=== PATIENT | female | born 1945 | race Asian ===

== ENCOUNTER 2018-09-27 15:06 | Inpatient (IN) | payer MEDICARE, MEDICAID ==
[~2018-09-27] VITALS: Ht 149.9 cm; Wt 52.2 kg
[2018-09-27] MEDS ORDERED: CEFTRIAXONE 1 G PREMIX 50 ML IV ONE (15:30)
[2018-09-27] MEDS ORDERED: SODIUM CHLORIDE 0.9% 1000ML BAG (SEPSIS BOLUS) IV ONE (15:30)
[2018-09-27 16:29] LABS: BASOPHILS % 0.2 % (0.0-2.0); HEMATOCRIT. 41.4 % (36.0-48.0); HEMOGLOBIN. 14.2 g/dL (12.0-16.0); LYMPHOCYTES % 9.4 % (20.0-50.0); MEAN CORPUSCULAR VOLUME 93.6 fL (81.0-99.0); MEAN PLATELET VOLUME 9.9 fl (7.4-10.4); MONOCYTES % 8.4 % (2.0-8.0); PLATELET 161 x1000/uL (130-400); RED BLOOD CELL COUNT 4.42 mill/uL (4.2-5.4); RED CELL DISTRIBUTION WIDTH 12.6 % (11.6-14.6)
[2018-09-27 16:38] LABS: PROTHROMBIN TIME 10.2 sec (9.6-11.0)
[2018-09-27 16:39] LABS: CHLORIDE 111 mEq/L (98-107)
[2018-09-27] MEDS ORDERED: POTASSIUM CHLORIDE 20MEQ TABLET SR PO ONE (17:00)
[2018-09-27 19:47] LABS: CLARITY URINE CLEAR (CLEAR); COLOR URINE YELLOW (YELLOW); KETONES URINE TRACE (NEGATIVE); LEUKOCYTE ESTERASE URINE 2+ (NEGATIVE); NITRITE URINE NEGATIVE (NEGATIVE); OCCULT BLOOD URINE NEGATIVE (NEGATIVE); PROTEIN URINE TRACE (NEGATIVE); SPECIFIC GRAVITY URINE 1.017 (1.005-1.030)
[2018-09-27 20:05] LABS: *AMPHETAMINES SCREEN URINE NEGATIVE (NEGATIVE); *BARBITURATES SCREEN URINE NEGATIVE (NEGATIVE); *BENZODIAZEPINES SCREEN URINE NEGATIVE (NEGATIVE); *COCAINE SCREEN URINE NEGATIVE (NEGATIVE); CANNABINOID URINE SCREEN NEGATIVE (NEGATIVE); OPIATES URINE SCREEN NEGATIVE (NEGATIVE); PHENCYCLIDINE URINE SCREEN NEGATIVE (NEGATIVE)
[2018-09-27 20:06] LABS: METHADONE URINE SCREEN NEGATIVE (NEGATIVE)
[2018-09-27] MEDS ORDERED: CLONIDINE 0.1MG TABLET PO PRN (22:15)
[2018-09-27] MEDS ORDERED: GUAIFENESIN 200MG/10ML SUGAR FREE UDC PO PRN (22:15)
[2018-09-27] MEDS ORDERED: ONDANSETRON HCL 4MG/2ML INJ IV PRN (22:15)
[2018-09-27] MEDS ORDERED: MAGNESIUM/ALUMINUM HYDROXIDE/SIMETHICONE 30ML UDC PO PRN (22:15)
[2018-09-27] MEDS ORDERED: ACETAMINOPHEN 325MG TABLET PO PRN (22:15)
[2018-09-27 23:51] VITALS: BP 126/72
[2018-09-28] MEDS ORDERED: POTASSIUM CHLORIDE 20MEQ TABLET SR PO NR
[2018-09-28] MEDS: IPRATROPIUM/ALBUTEROL 0.5-3(2.5)MG/3ML NEB HHN SCH ×3 (00:21→21:40)
[2018-09-28 00:25] VITALS: BP 126/72
[2018-09-28] MEDS: SODIUM CHL 0.45% + KCL 20MEQ/L 1,000 ML IV SCH ×3 (00:51→20:50)
[2018-09-28] MEDS ORDERED: LEVOFLOXACIN 500MG PREMIX 100 ML IV NR (01:00)
[2018-09-28 04:00] VITALS: BP 125/77
[2018-09-28 05:59] LABS: BASOPHILS % 0.1 % (0.0-2.0); HEMATOCRIT. 38.7 % (36.0-48.0); HEMOGLOBIN. 12.9 g/dL (12.0-16.0); LYMPHOCYTES % 20.8 % (20.0-50.0); MEAN CORPUSCULAR HEMOGLOBIN 31.3 pg (28.0-32.0); MEAN CORPUSCULAR VOLUME 94.2 fL (81.0-99.0); MONOCYTES % 7.5 % (2.0-8.0); NEUTROPHILS % 71.6 % (40.0-76.0); PLATELET 143 x1000/uL (130-400); RED BLOOD CELL COUNT 4.11 mill/uL (4.2-5.4); RED CELL DISTRIBUTION WIDTH 12.7 % (11.6-14.6)
[2018-09-28 06:49] LABS: CHLORIDE 111 mEq/L (98-107)
[2018-09-28 07:10] LABS: CREATINE KINASE MB FRACTION 1.6 ng/mL (0.5-3.6)
[2018-09-28 08:00] VITALS: BP 111/63
[2018-09-28] MEDS: POTASSIUM CHLORIDE 20MEQ TABLET SR PO SCH (08:25)
[2018-09-28] MEDS: ENOXAPARIN 40MG/0.4ML SYR SUBCUT SCH (08:26)
[2018-09-28 12:00] VITALS: BP 145/52
[2018-09-28 13:03] LABS: VITAMIN B12 SERUM 641 pg/mL (211-911)
[2018-09-28] MEDS: ASPIRIN 81MG EC TABLET PO SCH (13:37)
[2018-09-28 16:00] VITALS: BP 134/77
[2018-09-28 17:28] LABS: CREATINE KINASE MB FRACTION 1.6 ng/mL (0.5-3.6)
[2018-09-28 20:00] VITALS: BP 138/74
[2018-09-29 00:05] VITALS: BP 105/62
[2018-09-29] MEDS ORDERED: LEVOFLOXACIN 250MG PREMIX 50 ML IV SCH (01:00)
[2018-09-29] MEDS: IPRATROPIUM/ALBUTEROL 0.5-3(2.5)MG/3ML NEB HHN SCH ×6 (01:20→21:19)
[2018-09-29 04:00] VITALS: BP 114/62
[2018-09-29] MEDS: SODIUM CHL 0.45% + KCL 20MEQ/L 1,000 ML IV SCH (04:36)
[2018-09-29 06:47] LABS: BASOPHILS % 0.4 % (0.0-2.0); EOSINOPHILS % 0.3 % (0.0-5.0); HEMATOCRIT. 38.4 % (36.0-48.0); LYMPHOCYTES % 30.8 % (20.0-50.0); MEAN CORPUSCULAR HEMOGLOBIN 31.5 pg (28.0-32.0); MEAN CORPUSCULAR VOLUME 93.4 fL (81.0-99.0); MEAN PLATELET VOLUME 9.7 fl (7.4-10.4); MONOCYTES % 8.5 % (2.0-8.0); PLATELET 145 x1000/uL (130-400); RED BLOOD CELL COUNT 4.11 mill/uL (4.2-5.4); RED CELL DISTRIBUTION WIDTH 12.8 % (11.6-14.6)
[2018-09-29 07:50] LABS: CHLORIDE 103 mEq/L (98-107)
[2018-09-29 08:00] VITALS: BP 107/63
[2018-09-29] MEDS: POTASSIUM CHLORIDE 20MEQ TABLET SR PO SCH (09:06)
[2018-09-29] MEDS: ASPIRIN 81MG EC TABLET PO SCH (09:06)
[2018-09-29] MEDS: ENOXAPARIN 40MG/0.4ML SYR SUBCUT SCH (09:06)
[2018-09-29 12:00] VITALS: BP 104/60
[2018-09-29 16:00] VITALS: BP 109/62
[2018-09-29] MEDS: DEXT 5%/0.45% NACL KCL 20MEQ/L 1,000 ML IV SCH (16:34)
[2018-09-29 20:11] VITALS: BP 103/61
[2018-09-29] MEDS: LEVOFLOXACIN 250MG TABLET PO SCH (20:29)
[2018-09-30 00:53] VITALS: BP 93/53
[2018-09-30] MEDS: IPRATROPIUM/ALBUTEROL 0.5-3(2.5)MG/3ML NEB HHN SCH ×6 (01:03→20:36)
[2018-09-30 04:00] VITALS: BP 119/75
[2018-09-30] MEDS: DEXT 5%/0.45% NACL KCL 20MEQ/L 1,000 ML IV SCH ×2 (04:43→16:24)
[2018-09-30 06:48] LABS: CHLORIDE 105 mEq/L (98-107)
[2018-09-30 06:55] LABS: BASOPHILS % 0.2 % (0.0-2.0); EOSINOPHILS % 0.8 % (0.0-5.0); HEMOGLOBIN. 13.1 g/dL (12.0-16.0); LYMPHOCYTES % 38.3 % (20.0-50.0); MEAN CORPUSCULAR HEMOGLOBIN 31.5 pg (28.0-32.0); MEAN CORPUSCULAR VOLUME 93.9 fL (81.0-99.0); MEAN PLATELET VOLUME 9.2 fl (7.4-10.4); NEUTROPHILS % 49.7 % (40.0-76.0); PLATELET 149 x1000/uL (130-400); RED BLOOD CELL COUNT 4.15 mill/uL (4.2-5.4); RED CELL DISTRIBUTION WIDTH 12.8 % (11.6-14.6)
[2018-09-30 08:00] VITALS: BP 102/63
[2018-09-30] MEDS: ENOXAPARIN 40MG/0.4ML SYR SUBCUT SCH (08:47)
[2018-09-30] MEDS: ASPIRIN 81MG EC TABLET PO SCH (08:47)
[2018-09-30] MEDS: POTASSIUM CHLORIDE 20MEQ TABLET SR PO SCH (08:47)
[2018-09-30 12:00] VITALS: BP 110/74
[2018-09-30 16:00] VITALS: BP 101/57
[2018-09-30 20:00] VITALS: BP 125/74
[2018-09-30] MEDS: LEVOFLOXACIN 250MG TABLET PO SCH (21:09)
[2018-10-01] VITALS: BP 126/72
[2018-10-01] MEDS: IPRATROPIUM/ALBUTEROL 0.5-3(2.5)MG/3ML NEB HHN SCH ×5 (00:29→21:13)
[2018-10-01 04:00] VITALS: BP 109/66
[2018-10-01] MEDS: DEXT 5%/0.45% NACL KCL 20MEQ/L 1,000 ML IV SCH ×2 (04:54→20:12)
[2018-10-01 08:00] VITALS: BP 148/59
[2018-10-01] MEDS: ASPIRIN 81MG EC TABLET PO SCH (10:01)
[2018-10-01] MEDS: ENOXAPARIN 40MG/0.4ML SYR SUBCUT SCH (10:01)
[2018-10-01] MEDS: POTASSIUM CHLORIDE 20MEQ TABLET SR PO SCH (10:02)
[2018-10-01] MEDS ORDERED: LACTULOSE 20G/30ML UDC PO NR (10:30)
[2018-10-01 12:00] VITALS: BP 188/81
[2018-10-01 16:00] VITALS: BP 118/70
[2018-10-01] MEDS: LEVOFLOXACIN 250MG TABLET PO SCH (20:11)
[2018-10-02] VITALS: BP 108/65
[2018-10-02] MEDS: IPRATROPIUM/ALBUTEROL 0.5-3(2.5)MG/3ML NEB HHN SCH ×6 (00:30→20:50)
[2018-10-02 04:00] VITALS: BP 102/55
[2018-10-02 08:00] VITALS: BP 110/56
[2018-10-02] MEDS ORDERED: BISACODYL 5MG TABLET PO SCH (08:00)
[2018-10-02] MEDS: POTASSIUM CHLORIDE 20MEQ TABLET SR PO SCH (09:05)
[2018-10-02] MEDS: ASPIRIN 81MG EC TABLET PO SCH (09:05)
[2018-10-02] MEDS: ENOXAPARIN 40MG/0.4ML SYR SUBCUT SCH (09:06)
[2018-10-02 12:00] VITALS: BP 108/59
[2018-10-02] MEDS: DEXT 5%/0.45% NACL KCL 20MEQ/L 1,000 ML IV SCH (13:45)
[2018-10-02 16:00] VITALS: BP 121/61
[2018-10-02 20:00] VITALS: BP 114/67
[2018-10-03] VITALS (7 sets, daily range): BP systolic 100–128; BP diastolic 63–75
[2018-10-03] MEDS: IPRATROPIUM/ALBUTEROL 0.5-3(2.5)MG/3ML NEB HHN SCH ×5 (00:32→16:00)
[2018-10-03] MEDS: LEVOFLOXACIN 250MG TABLET PO SCH (03:19)
[2018-10-03] MEDS: DEXT 5%/0.45% NACL KCL 20MEQ/L 1,000 ML IV SCH (03:19)
[2018-10-03] MEDS: ASPIRIN 81MG EC TABLET PO SCH (08:33)
[2018-10-03] MEDS: POTASSIUM CHLORIDE 20MEQ TABLET SR PO SCH (08:33)
[2018-10-03] MEDS: ENOXAPARIN 40MG/0.4ML SYR SUBCUT SCH (08:33)
== END 2018-10-03 21:37 | DRG 720 ==
LOC: ER 15:06 → 7WST 20:32 → EDBEDREQSVC 20:48 → EDBEDREQTM 20:48 → EDBEDREQ 20:48 → ENRESERV 21:44 → 5WST 10-02 22:10
PROVIDERS: ADMIT Internal Medicine Geriatric Medicine; ATTEND Internal Medicine Geriatric Medicine
DX: A41.9 Sepsis, unspecified organism (principal); G93.40 Encephalopathy, unspecified; E44.0 Moderate protein-calorie malnutrition; F32.2 Major depressive disorder, single episode, severe without psychotic features; E87.2 Acidosis; N39.0 Urinary tract infection, site not specified; G30.9 Alzheimer's disease, unspecified; F02.81 Dementia in other diseases classified elsewhere, unspecified severity, with behavioral disturbance; E87.6 Hypokalemia; M19.90 Unspecified osteoarthritis, unspecified site; I11.9 Hypertensive heart disease without heart failure; R73.9 Hyperglycemia, unspecified; Z68.23 Body mass index [BMI] 23.0-23.9, adult
CPT/HCPCS: 36415; 71045; 80048; 80305; 82553; 82607; 82652; 83605; 83735; 84145; 84443; 84484; 87077; 87186; 93005; 93306; 93970; 94640; 96365; 96366; 96367; 97116; 97162; 97530; 99291; C1893; J0696; J1650; J1956; J3480; J7030; J7620